=== PATIENT | female | born 1965 | race Caucasian/White ===

== ENCOUNTER → 2020-03-27 18:23 | Outpatient (CLI) | payer BC, SELFPAY | PROVIDERS: PCP Nurse Practitioner Primary Care; Referring Provider Nurse Practitioner Primary Care; Visit Provider Nurse Practitioner Primary Care | DX: Z11.59 Encounter for screening for other viral diseases (principal) | CPT/HCPCS: 87635; 94799; U0003 ==

== ENCOUNTER 2020-06-08 08:49 | Emergency (ER) | payer BC, SELFPAY ==
[2020-06-08 08:50] VITALS: BP 178/73; PULSE 79; RESP 19; TEMP 36.4; O2SAT 97; BMI 36.8
--- NOTE | 2020-06-08 08:57 | CT_ITS ---
STUDY: CT SOFT TISSUE NECK WITHOUT CONTRAST REASON FOR EXAM: Female, 54 years old. LEFT PERIAURICULAR SWELLING after eating a cracker and got a cramp RADIATION DOSAGE (If Supplied By Facility): CTDIvol = ( 18.75 ) mGy, DLP = ( 515.39 ) mGycm TECHNIQUE: The patient was scanned in a multi-detector CT scanner. High resolution transaxial imaging was performed without the administration of intravenous contrast material. Sagittal and coronal images were reconstructed. Individualized dose optimization techniques were used for this CT. COMPARISON: None. FINDINGS: Normal bilateral parotid glands. Normal bilateral filtering machine tender spaces. Normal bilateral parapharyngeal spaces. Normal bilateral carotid spaces. Atherosclerotic plaque formation of the aortic arch. Normal bilateral sublingual and submandibular glands and spaces. Normal visualized nasopharynx. Normal retropharyngeal space. Normal perivertebral space. Normal visualized bilateral faucial tonsils. The visualized tongue, tongue base and oropharynx are normal. There are minimally enlarged lymph nodes of the neck, with preservation of normal yovany architecture, consistent with a reactive lymph hyperplasia. There is no demonstrated solid or cystic mass lesion. Normal epiglottis, bilateral vallecula and hypopharynx. The pre-epiglottic and paraglottic adipose spaces are normal. Normal visualized bilateral piriform sinuses, aryepiglottic folds, vocal cords, and arytenoid-cricoid articulations. Normal subglottic trachea. There is a 1.4 cm x 1 cm slightly hypodense nodule in the medial aspect of the right lobe of the thyroid gland medially adjacent to the isthmus. There is also evidence of a 8.8 mm hypodense nodule in the posterior inferior pole of the left lobe of the thyroid gland. Normal visualized pulmonary apices. Small mediastinal lymph nodes. Normal visualized paranasal sinuses. Normal visualized cervical spine. CT/Soft Tissue Neck without Contr IMPRESSION: Normal unenhanced CT examination of the soft tissues of the neck. Small bilateral thyroid nodules. Electronically Signed: John Rivera, at 10:24 EDT , Service support ,
--- NOTE | 2020-06-08 08:58 | ED.VIS.GEN ---
History of Present Illness Chief Complaint: Edema Informant: Patient Onset: Today Current Severity: Mild Maximum Severity: Mild Narrative: Patient presents with rather abrupt onset of left facial swelling. She states she was eating a cracker this morning. She felt a cramping or spasm in the left side of her face and noted swelling just in front of her left ear and down into her neck. She has eaten this particular food in the past without any difficulty. She denies any other new products or medications. She does report having a problem with her salivary gland in 2005 with similar swelling but was not having pain at that time. She is complaining of pain today. She denies difficulty swallowing or shortness of breath. Past Medical History - Allergies and Home Meds Allergies/Adverse Reactions: Allergies HOT FLASHES PILL Allergy (Uncoded 06/08/20 08:55) Vomiting Primary Care Physician: Josue Da Silva NURSE RECRUITER, NURSE RECRUITER-C [Primary Care Provider] - Prior records reviewed: Yes Surgical History: appendectomy Smoking Status: Current every day smoker Review of Systems General: Denies: Chills, Fever Eyes: Denies: Visual changes - bilaterally ENT: Reports: - - Left periauricular pain Cardiovascular: Denies: Chest pain Respiratory: Denies: Dyspnea, Cough Gastrointestinal: Denies: Abdominal pain Musculoskeletal: Denies: Extremity Pain Skin: Denies: Rash Neurological: Denies: Headache Hematologic: Denies: Easy bruising, Easy bleeding Allergy: Denies: Uticaria Physical Exam Vital Signs/Narrative: Vital Signs Temp Pulse Resp BP Pulse Ox 06/08/20 08:50 97.5 F L 79 19 H 178/73 H 97 Inital Vital Signs reviewed: Yes General: Well nourished, Well developed Head: Normocephalic ENT: Moist mucous membranes, - - Focal swelling the left preauricular area that tracks down into the upper lateral neck. No overlying erythema. Area is tender to palpation. No crepitus. Intraoral examination unremarkable. Cardiovascular: Regular rate, Regular rhythm Respiratory: No distress, CTA bilaterally Abdomen: Soft, Nontender Extremities: Nontender Skin: Normal color Neurological: Alert, Oriented x3 Psychological: Normal affect Diagnostic/Tx/Re-eval Impressions Soft Tissue Neck CT 06/08/20 08:57 IMPRESSION: Normal unenhanced CT examination of the soft tissues of the neck. Small bilateral thyroid nodules. Electronically Signed: John Rivera, at 10:24 EDT , Service support , 06/08/20 08:57 CT Neck [Soft Tissue Neck without Contr] [CT] Stat Laboratory Results 06/08/20 06/08/20 08:54 08:54 WBC 8.4 RBC 5.38 Hgb 15.1 H Hct 46.9 MCV 87.2 MCH 28.1 MCHC 32.2 RDW Std Deviation 44.5 H RDW Coeff of Crystal 13.8 Plt Count 257 MPV 8.8 Immature Gran % (Auto) 0.200 Neut % (Auto) 61.7 Lymph % (Auto) 29.4 [place] % (Auto) 5.9 Eos % (Auto) 1.8 Baso % (Auto) 1.0 Absolute Neuts (auto) 5.2 Absolute Lymphs (auto) 2.46 Nucleated RBC % 0 Sodium 141 Potassium 3.9 Chloride 107 Carbon Dioxide 28.0 Anion Gap 6 BUN 14 Creatinine 0.74 Estim Creat Clear Calc 74.18 Est GFR (MDRD) Af Amer 105 Est GFR (MDRD) Non-Af 87 BUN/Creatinine Ratio 19.0 Glucose 102 Calcium 8.6 - Medical Decision Making Patient observed in the ER with no further swelling. Blood work is unremarkable. CT scan read as normal. When I reviewed the images through the left parotid gland I can see calcification that likely represents a stone in the duct. Patient was instructed on using lemon candies and warm compresses. She will be covered with Augmentin. She will be referred to ENT for follow-up as needed. ED Disposition - Plan for ED Patient: Disposition: Home or Assisted Living Diagnosis: Parotid duct obstruction Instructions: ED PAROTID DUCT OBSTRUCTION Prescriptions: Amox/Clavulanate Tablet [Augmentin Tablet] 875 mg PO Q12H #20 tab Transmission Status: Pending to [id number] Referrals: Adrian Hensley MD [STAFF PHYSICIAN] - 3-5 Days if not improving
[2020-06-08 09:03] LABS: Absolute Lymphocyte Count 2.46 X10^3/uL (0.83-4.51); Absolute Neutrophil Count 5.2 X10^3/uL (2.0-7.7); Basophil# 0.08 X10^3/uL; Eosinophil# 0.15 X10^3/uL; Eosinophils% 1.8 % (0-5); Hematocrit 46.9 % (37-47); Hemoglobin 15.1 g/dL (12.0-15.0); Lymphocyte # 2.46 X10^3/ul (4.0); Lymphocyte % 29.4 % (19-41); Mean Corp Hgb Conc 32.2 g/dL (32-36); Mean Corpuscular Hgb 28.1 pg (27.0-32.0); Mean Corpuscular Volume 87.2 fL (81-99); Mean Platelet Vol. 8.8 fl (6.2-12.0); Monocyte# 0.49 X10^3/uL; Monocyte% 5.9 % (0-10); NRBC Flagged by Analyzer 0 % (0-5); Neutrophil # 5.17 X10^3/uL (2.7-7.7); Neutrophil % 61.7 % (47-70); Platelet Count 257 K/mm3 (150-450); RBC Distribution Width CV 13.8 % (11.6-14.6); RBC Distribution Width SD 44.5 fl (35.1-43.9); Red Blood Count 5.38 M/mm3 (4.2-5.4); White Blood Count 8.4 K/mm3 (4.4-11.0)
[2020-06-08 09:14] LABS: Anion Gap 6 (5-15); BUN 14 mg/dL (7-18); Calcium,Total 8.6 mg/dL (8.5-10.1); Chloride 107 mmol/L (98-107); Creatinine, Serum 0.74 mg/dL (0.55-1.02); EST Glomerular Filtration Rate 87 mL/min (>60); Est Glom Filt Rate - Afr Amer 105 mL/min (>60); Estimated Creatinine Clearance 74.18 ml/min; Glucose 102 mg/dL (74-106); Potassium 3.9 mmol/L (3.5-5.1); Sodium Level 141 mmol/L (136-145)
[2020-06-08 10:52] VITALS: BP 144/84; PULSE 73; RESP 15; O2SAT 96
== END 2020-06-08 10:52 | disposition home or self-care (01) ==
PROVIDERS: Emergency Provider Emergency Medicine; PCP Nurse Practitioner Primary Care
DX: K11.8 Other diseases of salivary glands (principal); F17.200 Nicotine dependence, unspecified, uncomplicated
CPT/HCPCS: 70490; 80048; 85025; 99283; A4216

== ENCOUNTER 2020-07-26 11:11 | Emergency (ER) | payer BC, SELFPAY ==
[2020-07-26 11:12] VITALS: BP 189/83; PULSE 86; RESP 16; TEMP 35.9; O2SAT 99; BMI 24.2
--- NOTE | 2020-07-26 11:32 | ED.VIS.GEN ---
History of Present Illness Chief Complaint: Flank Pain Detail of Chief Complaint: Lower quadrant abdominal pain Informant: Patient Onset: Weeks - Patient reports pain that started 3 weeks ago and was intermittent. Pain has been continuous past 48 hours. Timing: Continuous, Intermittent Quality: Pain Location: Left lower quadrant Current Severity: Mild Maximum Severity: Severe Worsened by: Movement Relieved by: Nothing Associated Symptoms: Nausea Narrative: Patient is a 54-year-old woman who presents with left lower quadrant pain for the past 48 hours. She denies history of diverticulosis or diverticulitis. She denies history of constipation. She denies blood in her stool. She denies mucus in her stool. She denies dysuria, frequency, urgency or hematuria. She denies history of renal ureterolithiasis. She denies history of trauma. She denies headache, ocular, visual auditory symptoms. She denies cardiac respiratory symptoms. She has not noted a rash or any skin lesions. Prior similar symptoms: No Recent Illness/Hospitalization: No - Past Medical History (1) No significant past medical history Status: Acute Past Medical History - Allergies and Home Meds Allergies/Adverse Reactions: Allergies HOT FLASHES PILL Allergy (Uncoded 07/26/20 11:13) Vomiting Primary Care Physician: Josue Da Silva AIRBRUSH ARTIST PHOTOGRAPHY, AIRBRUSH ARTIST PHOTOGRAPHY-C [Primary Care Provider] - Surgical History: appendectomy Lives: Spouse/ Significant Other Smoking Status: Current every day smoker Alcohol: None Drugs: None Review of Systems General: Denies: Chills, Fever, Malaise, Subjective, Sweats Eyes: Denies: Visual changes - bilaterally, Blurred Vision - bilaterally ENT: Denies: Rhinorrhea, Sore throat Cardiovascular: Denies: Chest pain, Palpitations Respiratory: Denies: Dyspnea, Cough, Dyspnea on exertion Gastrointestinal: Reports: Abdominal pain, Nausea. Denies: Vomiting, Diarrhea, Constipation Genitourinary: Denies: Dysuria, Hematuria, Frequency Musculoskeletal: Denies: Back pain, Swelling, Extremity Pain Skin: Denies: Rash, Wounds Neurological: Denies: Headache, Parasthesia Endocrine: Denies: Polyuria, Polydipsia Hematologic: Denies: Easy bruising Physical Exam Vital Signs/Narrative: Vital Signs Temp Pulse Resp BP Pulse Ox 07/26/20 11:12 96.6 F L 86 16 189/83 H 99 Inital Vital Signs reviewed: Yes General: Well nourished, Well developed, Obese, No Acute Distress Head: Normocephalic, Atraumatic Eyes: Perrl, EOMI ENT: Moist mucous membranes, No rhinorrhea Neck: Supple, Nontender Cardiovascular: Regular rate, Regular rhythm, No murmurs Respiratory: No distress, CTA bilaterally, Chest nontender Abdomen: Soft, Nondistended, No masses, Tender, Guarding, Rebound tenderness - Localized peritoneal findings left lower quadrant, Hypoactive bowel sounds. Negative for: Nontender, Normal bowel sounds, Hepatomegaly, Splenomegaly, Pulsatile mass, Ko's sign Rectal: Deferred Back: Nontender, Normal Inspection. Negative for: CVA tenderness Extremities: Nontender, No edema Skin: Normal color, No rash, No Trauma. Negative for: Cyanosis, Diaphoresis, Jaundice Neurological: Alert, Oriented x3, Cranial nerves II-XII grossly intact, Normal Strength, Normal Sensation Psychological: Normal affect, Normal Mood Diagnostic/Tx/Re-eval Impressions Abdomen/Pelvis CT 07/26/20 12:11 IMPRESSION: Findings in keeping with a noncomplicated sigmoid diverticulitis. Enlarged fibroid uterus. 1.5 cm follicle in the right ovary. Left renal cyst. Electronically Signed: John Rivera, at 12:30 EST , Service support , 07/26/20 12:11 Abdomen/Pelvis W IV Cont ONLY [CT] Stat Laboratory Results 07/26/20 07/26/20 07/26/20 11:35 11:35 12:50 WBC 8.1 RBC 5.49 H Hgb 15.1 H Hct 47.3 H MCV 86.2 MCH 27.5 MCHC 31.9 L RDW Std Deviation 44.7 H RDW Coeff of Crystal 13.9 Plt Count 247 MPV 8.5 Immature Gran % (Auto) 0.200 Neut % (Auto) 66.2 Lymph % (Auto) 25.3 [place] % (Auto) 5.1 Eos % (Auto) 2.2 Baso % (Auto) 1.0 Absolute Neuts (auto) 5.4 Absolute Lymphs (auto) 2.05 Nucleated RBC % 0 Sodium 138 Potassium 3.9 Chloride 107 Carbon Dioxide 27.0 Anion Gap 4 L BUN 12 Creatinine 0.69 Estim Creat Clear Calc 86.24 Est GFR (MDRD) Af Amer 113 Est GFR (MDRD) Non-Af 93 BUN/Creatinine Ratio 17.3 Glucose 93 Calcium 8.8 Urine Color Yellow Urine Clarity Sl. Cloudy Urine pH 7.0 Ur Specific [place] 1.010 Urine Protein Negative Urine Glucose (UA) Normal Urine Ketones Negative Urine Occult Blood 10 H Urine Nitrite Negative Urine Bilirubin Negative Urine Urobilinogen Normal Ur Leukocyte Esterase Negative Urine RBC 0 SEEN Urine WBC 0 SEEN Ur Squamous Epith Cells 0-5 SEEN Urine Bacteria RARE Urine Mucus 0 SEEN - Medical Decision Making Diagnosis includes malignancy, diverticulitis, ureterolithiasis. Patient was ordered IV morphine and Zofran for her pain and nausea. Blood work was obtained and CT of the abdomen pelvis with IV contrast was ordered. Patient has evidence of noncomplicated diverticulitis. Since her white count is normal she is afebrile will treat with dose of Zosyn and discharged with Augmentin. ED Disposition - Plan for ED Patient: Disposition: Home or Assisted Living Diagnosis: Diverticulitis large intestine Instructions: ED Diverticulitis Prescriptions: Amoxicillin/Potassium Clav [Augmentin 875-125 Tablet] 1 ea PO BID #14 tab Transmission Status: Pending to [facility]/pharmacy #[id number] Referrals: Josue Da Silva NP, AIRBRUSH ARTIST PHOTOGRAPHY-C [Primary Care Provider] - 3-5 Days
[2020-07-26] MEDS: Morphine 4 MG/ML Syringe IV (11:45)
[2020-07-26] MEDS: Ondansetron 4 MG/2 ML Vial IV (11:45)
[2020-07-26 11:50] LABS: Absolute Lymphocyte Count 2.05 X10^3/uL (0.83-4.51); Absolute Neutrophil Count 5.4 X10^3/uL (2.0-7.7); Basophil# 0.08 X10^3/uL; Eosinophil# 0.18 X10^3/uL; Eosinophils% 2.2 % (0-5); Hematocrit 47.3 % (37-47); Hemoglobin 15.1 g/dL (12.0-15.0); Lymphocyte # 2.05 X10^3/ul (4.0); Lymphocyte % 25.3 % (19-41); Mean Corp Hgb Conc 31.9 g/dL (32-36); Mean Corpuscular Hgb 27.5 pg (27.0-32.0); Mean Corpuscular Volume 86.2 fL (81-99); Mean Platelet Vol. 8.5 fl (6.2-12.0); Monocyte# 0.41 X10^3/uL; Monocyte% 5.1 % (0-10); NRBC Flagged by Analyzer 0 % (0-5); Neutrophil # 5.35 X10^3/uL (2.7-7.7); Neutrophil % 66.2 % (47-70); Platelet Count 247 K/mm3 (150-450); RBC Distribution Width CV 13.9 % (11.6-14.6); RBC Distribution Width SD 44.7 fl (35.1-43.9); Red Blood Count 5.49 M/mm3 (4.2-5.4); White Blood Count 8.1 K/mm3 (4.4-11.0)
[2020-07-26 12:01] LABS: Anion Gap 4 (5-15); BUN 12 mg/dL (7-18); BUN/Creat Ratio 17.3 RATIO (10-20); Calcium,Total 8.8 mg/dL (8.5-10.1); Chloride 107 mmol/L (98-107); Creatinine, Serum 0.69 mg/dL (0.55-1.02); EST Glomerular Filtration Rate 93 mL/min (>60); Est Glom Filt Rate - Afr Amer 113 mL/min (>60); Estimated Creatinine Clearance 86.24 ml/min; Glucose 93 mg/dL (74-106); Potassium 3.9 mmol/L (3.5-5.1); Sodium Level 138 mmol/L (136-145)
--- NOTE | 2020-07-26 12:11 | CT_ITS ---
STUDY: CT ABDOMEN AND PELVIS WITH CONTRAST REASON FOR EXAM: Female, 54 years old. LLQ PAIN WITH REBOUND TENDERNESS, LEFT GROIN PAIN X3 WKS RADIATION DOSAGE (If Supplied By Facility): CTDIvol = ( 15.66 ) mGy, DLP = ( 1130.64 ) mGycm TECHNIQUE: Transaxial images were obtained from the dome of the diaphragm to the symphysis pubis without oral contrast. IV 100mL Isovue-300 was administered. Sagittal and coronal images were reconstructed. Individualized dose optimization techniques were used for this CT. COMPARISON: None. FINDINGS: Minimal degree of parenchymal markings at the lung bases as well as in the anterior aspect of the left lower lobe suggestive of atelectasis. The visualized portions of the heart are within normal limits. Normal liver. Normal gallbladder and extrahepatic biliary system. Normal spleen. Normal pancreas. Normal bilateral adrenal glands. Normal right kidney. There is a 5.5 cm x 5.3 cm cyst in the mid and lower pole of the left kidney. There is a small hiatal hernia. Normal small intestine. There is diverticulosis, with thickening of the colon wall, and pericolonic inflammation changes consistent with acute diverticulitis. The appendix is visualized and appears normal. There is scattered atherosclerotic calcification of the abdominal aorta, without a demonstrated aneurysm. Normal inferior vena cava. There is borderline retroperitoneal lymphadenopathy with enlarged nodes no greater than 10mm in the short axis diameter. Normal urinary bladder. Calcified fibroid uterus. 1.5 cm follicle in the right ovary. Normal abdominal wall. Normal osseous structures. CT/Abdomen/Pelvis W IV Cont ONLY IMPRESSION: Findings in keeping with a noncomplicated sigmoid diverticulitis. Enlarged fibroid uterus. 1.5 cm follicle in the right ovary. Left renal cyst. Electronically Signed: John Rivera, at 12:30 EST , Service support ,
[2020-07-26 12:58] LABS: Mucous, Urine 0 SEEN /hpf (<or=2+); Red Blood Cells-Urine 0 SEEN /hpf (0-5); White Blood Cells 0 SEEN /hpf (0-5)
[2020-07-26 13:13] LABS: Color, Urine Yellow (Yellow); Glucose, Dipstick Normal (Normal); Ketone-Dipstick Negative (Negative); Leukocyte Esterase-Dipstick Negative /ul (Negative); Nitrite-Dipstick Negative (Negative); Occult Blood-Urine 10 /ul (Negative); Protein-Dipstick Negative (Negative); Urine Bilirubin Dipstick Negative (Negative); Urine Clarity Sl. Cloudy (Clear); Urine Urobilinogen Normal (Normal)
[2020-07-26 13:21] LABS: Bacteria RARE /hpf (None Seen); Squamous Epithelial Cells - UA 0-5 SEEN /hpf (5-10)
[2020-07-26 13:30] VITALS: BP 193/93; PULSE 75; TEMP -8.8; TEMP 16; O2SAT 98
--- NOTE | 2020-07-26 13:31 | ED.RN ---
IV DC'ED, CATHETER INTACT, SMALL GAUZE DRESSING PLACED. DISCHARGE INSTRUCTIONS GIVEN TO AND REVIEWED WITH PATIENT, PATIENT DENIES QUESTIONS OR CONCERNS AND VOICES UNDERSTANDING OF DISCHARGE INSTRUCTIONS. PT AMBULATES OUT OF ROOM WITHOUT DIFFICULTY.
== END 2020-07-26 13:32 | disposition home or self-care (01) ==
PROVIDERS: Emergency Provider Emergency Medicine; PCP Nurse Practitioner Primary Care
DX: K57.32 Diverticulitis of large intestine without perforation or abscess without bleeding (principal); F17.200 Nicotine dependence, unspecified, uncomplicated; E66.9 Obesity, unspecified
CPT/HCPCS: 74177; 80048; 81001; 85025; 96374; 96375; 99283; J7050; Q9967; A4216; J2405

== ENCOUNTER 2020-08-07 21:24 | Observation (INO) | payer BC, SELFPAY ==
[2020-08-07] VITALS (7 sets, daily range): BP systolic 145–200; BP diastolic 78–97; PULSE 80–113; RESP 15–18; TEMP 36.6–38.2; O2SAT 95–100; BMI 37.1
[2020-08-07 22:24] LABS: Bacteria 0 SEEN /hpf (None Seen); Mucous, Urine 0 SEEN /hpf (<or=2+)
[2020-08-07 22:50] LABS: Color, Urine Yellow (Yellow); Glucose, Dipstick Normal (Normal); Ketone-Dipstick Negative (Negative); Leukocyte Esterase-Dipstick 500 /ul (Negative); Nitrite-Dipstick Positive (Negative); Occult Blood-Urine 250 /ul (Negative); Protein-Dipstick 100 mg/dl (Negative); Urine Bilirubin Dipstick Negative (Negative); Urine Clarity Sl. Cloudy (Clear); Urine Urobilinogen Normal (Normal)
--- NOTE | 2020-08-07 22:52 | CT_ITS ---
STUDY: CT ABDOMEN AND PELVIS WITH CONTRAST REASON FOR EXAM: Female, 54 years old. LLQ PAIN X 3 WEEKS,FINISHED ANTIBIOTIC FOR DIVERTICULITIS 08-02-20,HEMATURIA X 1 DAY -- PRIOR APPENDECTOMY RADIATION DOSAGE (If Supplied By Facility): CTDIvol = ( 19.55 ) mGy, DLP = ( 1100.31 ) mGycm TECHNIQUE: Transaxial images were obtained from the dome of the diaphragm to the symphysis pubis without oral contrast. IV 100mL Isovue-300 was administered. Sagittal and coronal images were reconstructed. Individualized dose optimization techniques were used for this CT. COMPARISON: CT of abdomen and pelvis 07/26/2020 FINDINGS: The visualized lung bases are unremarkable. The visualized portions of the heart are within normal limits. Normal liver. Normal gallbladder and extrahepatic biliary system. Normal spleen. Normal pancreas. Normal bilateral adrenal glands. Normal right kidney. 5.5 cm simple left renal cortical cyst. Normal visualized stomach. Normal small intestine. There is diverticulosis, with thickening of the colon wall, and pericolonic inflammation changes consistent with acute diverticulitis. There is non-visualization of the appendix. No free air or free fluid. No abscess. Normal abdominal aorta. Normal inferior vena cava. Normal retroperitoneum. Normal urinary bladder. Calcified uterine fibroid. Normal abdominal wall. Mild scoliosis. CT/Abdomen/Pelvis W IV Cont ONLY IMPRESSION: Acute sigmoid diverticulitis without evidence of perforation or abscess Electronically Signed: Adrian Mckeon MD at 23:45 EST , Service support ,
[2020-08-07] MEDS: Ketorolac 15 MG/ML Vial IV (23:11)
[2020-08-07] MEDS: 0.9% Normal Saline 1,000 ML 1000 ML IV (23:11)
[2020-08-07 23:13] LABS: Red Blood Cells-Urine 10-25 SEEN /hpf (0-5); Squamous Epithelial Cells - UA 0-5 SEEN /hpf (5-10); White Blood Cells 50-100 SEEN /hpf (0-5)
[2020-08-07 23:18] LABS: Absolute Lymphocyte Count 1.77 X10^3/uL (0.83-4.51); Absolute Neutrophil Count 12.1 X10^3/uL (2.0-7.7); Basophil# 0.09 X10^3/uL; Basophil% 0.6 % (0-1); Eosinophil# 0.15 X10^3/uL; Hematocrit 46.5 % (37-47); Lymphocyte # 1.77 X10^3/ul (4.0); Lymphocyte % 11.8 % (19-41); Mean Corp Hgb Conc 32.3 g/dL (32-36); Mean Corpuscular Hgb 27.4 pg (27.0-32.0); Mean Platelet Vol. 8.6 fl (6.2-12.0); Monocyte# 0.87 X10^3/uL; Monocyte% 5.8 % (0-10); NRBC Flagged by Analyzer 0 % (0-5); Neutrophil # 12.09 X10^3/uL (2.7-7.7); Neutrophil % 80.5 % (47-70); Platelet Count 255 K/mm3 (150-450); RBC Distribution Width SD 43.9 fl (35.1-43.9); Red Blood Count 5.47 M/mm3 (4.2-5.4)
--- NOTE | 2020-08-07 23:23 | ED.VIS.GI ---
History of Present Illness Chief Complaint: Complaint Narrative: Patient presenting secondary to urinary symptoms as well as flank pain. Patient states that on 26 July she was diagnosed as having diverticulitis. This was associated with left lower quadrant abdominal pain. She was placed on a 7-day course of Augmentin, does report that she finished the course of that but reports that she never really completely resolved her left lower quadrant abdominal pain. Patient states however over the course of the last 2 days she has developed dysuria with hematuria. This was associated with a new onset of suprapubic pain. Patient had a urinalysis performed as an outpatient today, but has not yet been informed of the results. Patient states that tonight she started to develop some flank pain that was bilateral as well as a subjective fever as well as a elevated home temperature of 37.9 ?C. Patient denies any nausea or vomiting. She denies any blood or mucus in her stool, constipation or diarrhea. Review of systems otherwise negative. Past Medical History - Allergies and Home Meds Allergies/Adverse Reactions: Allergies HOT FLASHES PILL Allergy (Uncoded 08/07/20 21:27) Vomiting Primary Care Physician: Josue Da Silva CHIEF PSYCHOLOGIST, CHIEF PSYCHOLOGIST-C [Primary Care Provider] - Prior records reviewed: Yes Past Medical History: - - Diverticulitis Surgical History: appendectomy Lives: With Family Smoking Status: Current every day smoker Alcohol: None Drugs: None Review of Systems All systems negative except as indicated General: Reports: Fever Eyes: Denies: Visual changes - bilaterally, Diplopia ENT: Denies: Rhinorrhea, Sore throat Cardiovascular: Denies: Chest pain, Palpitations Respiratory: Denies: Dyspnea, Cough, Dyspnea on exertion Gastrointestinal: Reports: Abdominal pain Genitourinary: Reports: Dysuria, Hematuria Musculoskeletal: Denies: Back pain, Extremity Pain Skin: Denies: Rash, Wounds Neurological: Denies: Headache, Weakness, Numbness Physical Exam Vital Signs/Narrative: Vital Signs Temp Pulse Resp BP Pulse Ox 08/07/20 23:00 100.7 F H 89 18 156/78 H 97 08/07/20 22:55 100.7 F H 08/07/20 22:27 98 F 80 18 145/97 H 99 08/07/20 22:20 89 15 145/97 H 100 08/07/20 22:01 168/93 H 08/07/20 21:27 97.8 F 113 H 17 200/89 H 95 08/07/20 21:25 97.8 F 113 H 17 200/89 H 95 Inital Vital Signs reviewed: Yes General: Well nourished, Well developed, No Acute Distress Head: Normocephalic, Atraumatic Eyes: Perrl, EOMI ENT: Moist mucous membranes, No rhinorrhea Neck: Supple, Nontender Cardiovascular: Regular rhythm, No murmurs, Tachycardia Respiratory: No distress, CTA bilaterally, Chest nontender Abdomen: Soft, Nondistended, Normal bowel sounds, Tender - Minimal suprapubic and left lower quadrant tenderness, no guarding or rebound. No evidence of overlying vesicular rash. No palpable masses. Back: Nontender, Normal Inspection Extremities: Nontender, No edema Skin: Normal color, No rash Neurological: Alert, Oriented x3, Cranial nerves II-XII grossly intact, Normal Strength, Normal Sensation Psychological: Normal affect, Normal Mood Diagnostic/Tx/Re-eval Clinical Impression(s) from Imaging Studies Abdomen/Pelvis CT 08/07/20 22:52 IMPRESSION: Acute sigmoid diverticulitis without evidence of perforation or abscess Electronically Signed: Adrian Mckeno MD at 23:45 EST , Service support , Laboratory Data 08/07/20 08/07/20 08/07/20 22:05 23:05 23:05 WBC 15.0 H RBC 5.47 H Hgb 15.0 Hct 46.5 MCV 85.0 MCH 27.4 MCHC 32.3 RDW Std Deviation 43.9 RDW Coeff of [place] 14.0 Plt Count 255 MPV 8.6 Immature Gran % (Auto) 0.300 Neut % (Auto) 80.5 H Lymph % (Auto) 11.8 L [place] % (Auto) 5.8 Eos % (Auto) 1.0 Baso % (Auto) 0.6 Absolute Neuts (auto) 12.1 H Absolute Lymphs (auto) 1.77 Nucleated RBC % 0 Sodium 139 Potassium 4.3 Chloride 107 Carbon Dioxide 27.0 Anion Gap 5 BUN 15 Creatinine 0.76 Estim Creat Clear Calc 72.22 Est GFR (MDRD) Af Amer 102 Est GFR (MDRD) Non-Af 84 BUN/Creatinine Ratio 19.9 Glucose 117 H Calcium 9.1 Urine Color Yellow Urine Clarity Sl. Cloudy Urine pH 6.0 Ur Specific [place] 1.020 Urine Protein 100 H Urine Glucose (UA) Normal Urine Ketones Negative Urine Occult Blood 250 H Urine Nitrite Positive H Urine Bilirubin Negative Urine Urobilinogen Normal Ur Leukocyte Esterase 500 H Urine RBC 10-25 SEEN Urine WBC 50-100 SEEN Ur Squamous Epith Cells 0-5 SEEN Urine Bacteria 0 SEEN Urine Mucus 0 SEEN - Medical Decision Making Patient presented with a fever mild tachycardia and left lower quadrant pain and urinary signs and symptoms. Patient was given fluids and Toradol for treatment of symptoms and fever. Patient was noted to have a leukocytosis of 15, chemistry was within normal limits with normal anion gap no evidence of acidosis. Urinalysis shows a nitrite positive urinary tract infection, this was cultured. Due to the patient's recent diagnosis of diverticulitis with continued pain after treatment CT abdomen and pelvis was performed. This shows continued acute sigmoid diverticulitis without any evidence of perforation or abscess. This point patient has a new onset of a urinary tract infection, she has continued diverticulitis without clearing after course of antibiotics, and now actually meets sepsis criteria secondary to her fever leukocytosis and 2 sources. Cultures were obtained, lactic acid will be obtained. Patient will be given a dose of Zosyn. I believe the patient requires admission for IV antibiotics at this time. I discussed this with the hospitalist. ED Disposition - Plan for ED Patient: Disposition: [facility] Diagnosis: Diverticulitis, Urinary tract infection, Sepsis, Failure of outpatient treatment
[2020-08-07 23:28] LABS: Anion Gap 5 (5-15); BUN 15 mg/dL (7-18); BUN/Creat Ratio 19.9 RATIO (10-20); Calcium,Total 9.1 mg/dL (8.5-10.1); Chloride 107 mmol/L (98-107); Creatinine, Serum 0.76 mg/dL (0.55-1.02); EST Glomerular Filtration Rate 84 mL/min (>60); Est Glom Filt Rate - Afr Amer 102 mL/min (>60); Estimated Creatinine Clearance 72.22 ml/min; Glucose 117 mg/dL (74-106); Potassium 4.3 mmol/L (3.5-5.1); Sodium Level 139 mmol/L (136-145)
[2020-08-08] VITALS (11 sets, daily range): BP systolic 123–153; BP diastolic 58–87; PULSE 75–89; RESP 16–20; TEMP 36.7–37.5; O2SAT 95–100; BMI 37.3
--- NOTE | 2020-08-08 00:20 | PCM.HP.STD ---
Problem List (1) Acute cystitis Status: Acute (2) Acute sigmoid diverticulitis Status: Acute (3) Sepsis Status: Acute History of Present Illness Date of Admission: 08/08/20 Chief Complaint: Dysuria, pink urine, abdominal pain. The patient is a 54 year old F with no significant past medical history presented to the emergency room because of dysuria, pink urine and abdominal pain. Patient came to the emergency department on July 26, 2020 with abdominal pain, had CT scan abdomen and pelvis with IV contrast and she was found to have noncomplicated acute sigmoid diverticulitis and she was discharged on Augmentin for 7 days. Patient completed Augmentin for 7 days and she stated that the left lower quadrant abdominal pain did improve but did not go away. The pain is on the left lower quadrant pain, sharp pain, 8 out of 10 in severity, has been getting worse over the last 3 days, extends to the right lower quadrant and suprapubic region, associated with subjective low-grade fever of 37.9 Celsius and without aggravating or relieving factors. Also, today, she started having pink-colored urine with dysuria and then she passed couple of blood clots. In the emergency department, she has spikes of low-grade fever, tachycardic upon arrival, blood pressure was elevated and then improved, pulse ox was 95% on room air. Routine blood work was remarkable for significant leukocytosis with neutrophilia, otherwise unremarkable. Lactic acid is normal.. Urinalysis revealed cloudy urine, positive for nitrite and leukocyte esterase, there was 50-100 RBCs and no bacteria seen. CT scan abdomen and pelvis with IV contrast done again tonight and again showed acute sigmoid diverticulitis without evidence of perforation or abscess formation. Patient is being admitted for sepsis secondary to acute sigmoid diverticulitis with failure of outpatient treatment as well as acute cystitis. Past Medical History Allergies HOT FLASHES PILL Allergy (Uncoded 08/07/20 21:27) Vomiting Home Medications: Ambulatory Orders Medication Instructions Recorded NK 08/07/20 Surgical History: appendectomy Psychiatric History: No pertinent psych hx CONCRETE BATCHER History: No pertinent CONCRETE BATCHER history Lives: With Family Smoking Status: Current every day smoker Tobacco Use: Cigarettes Alcohol: None Drugs: None - *Family History Maternal History Items: No pertinent history Paternal History Items: No pertinent history Review of Systems Constitutional: Reports: Fever. Denies: Anorexia, Chills, Weakness, Fatigue Eyes: Denies: Blurred vision, Double vision, Drainage, Redness HEENT: Denies: Difficulty Hearing, Dysphasia, Ear Pain, Eye Pain, Nasal Congestion, Sore Throat Cardiovascular: Denies: Chest Pain, Claudication, Chest Tightness, Edema, Heaviness, Palpitations, Syncope Respiratory: Denies: Cough, Hemoptysis, Pleuritic Pain, Shortness of breath at rest, Sputum production, Wheezing Gastrointestinal: Reports: Abdominal Pain. Denies: Constipation, Diarrhea, Nausea, Vomiting Genitourinary: Reports: Dysuria, Hematuria. Denies: Frequency Musculoskeletal: Denies: Arm Pain, Back Pain, Foot Pain Skin: Denies: Dryness, Rash Neurological: Denies: Balance problems, Blurred vision, Double vision, Change in Speech, Slurred speech, Headaches, Numbness Psychiatric: Denies: Anxiety, Depression Endocrine: Denies: Change in Body Habitus, Polydipsia, Polyuria VTE Information - Inpt Only VTE Present on Admission: No VTE Mechan Device Prophylaxis: None VTE Pharm Prophylaxis ordered?: Yes Patient Problems: Active and Suspected Problems Acute cystitis (Acute) Acute sigmoid diverticulitis (Acute) Sepsis (Acute) - Physical Exam Vitals/I&O's: Vital Signs Temp Pulse Resp BP Pulse Ox 100.7 F H 89 18 156/78 H 97 08/07/20 23:00 08/07/20 23:00 08/07/20 23:00 08/07/20 23:00 08/07/20 23:00 Oxygen Delivery Method Room Air Weight: 216 lb 7.903 oz Body Mass Index (BMI) 37.1 General: Alert, Oriented x3, Cooperative, No apparent distress HEENT: Atraumatic, PERRLA, EOMI, Normocephalic Oral: Moist Mucosa, No Gingival or Mucosal Lesions/ Ulcerations Neck: Supple, No JVD, Negative Carotid Bruits, Trachea Midline, Thyroid Normal Size and Texture Lungs: Clear to auscultation, Normal air movement, No rhonchi, No wheeze, No rales Cardiovascular: Regular rate, Regular Rhythm, Normal S1, Normal S2, PMI Normal, Tachycardic Abdomen: Bowel Sounds Present, Soft, Non-Distended, No Hepato-splenomegaly, Obese, Tender - Left lower quadrant tenderness, no guarding or rigidity. Extremities: No clubbing, No cyanosis, No edema Skin: No rashes, No breakdown Lymphatic: No Cervical, Supraclavicular, or Inguinal Adenopathy Neurological: Cranial nerves II-XII grossly intact, Motor Exam 5/5 strength throughout Psych/Mental Status: Normal Affect, Appropriate, Alert and oriented to time, place, person, mood and affect Laboratory Results 08/07/20 22:05: Urine Color Yellow, Urine Clarity Sl. Cloudy, Urine pH 6.0, Ur Specific [place] 1.020, Urine Protein 100 H, Urine Glucose (UA) Normal, Urine Ketones Negative, Urine Occult Blood 250 H, Urine Nitrite Positive H, Urine Bilirubin Negative, Urine Urobilinogen Normal, Ur Leukocyte Esterase 500 H, Urine RBC 10-25 SEEN, Urine WBC 50-100 SEEN, Ur Squamous Epith Cells 0-5 SEEN, Urine Bacteria 0 SEEN, Urine Mucus 0 SEEN 08/07/20 23:05: WBC 15.0 H, RBC 5.47 H, Hgb 15.0, Hct 46.5, MCV 85.0, MCH 27.4, MCHC 32.3, RDW Std Deviation 43.9, RDW Coeff of [place] 14.0, Plt Count 255, MPV 8.6, Immature Gran % (Auto) 0.300, Neut % (Auto) 80.5 H, Lymph % (Auto) 11.8 L, [place] % (Auto) 5.8, Eos % (Auto) 1.0, Baso % (Auto) 0.6, Absolute Neuts (auto) 12.1 H, Absolute Lymphs (auto) 1.77, Nucleated RBC % 0 08/07/20 23:05: Sodium 139, Potassium 4.3, Chloride 107, Carbon Dioxide 27.0, Anion Gap 5, BUN 15, Creatinine 0.76, Estim Creat Clear Calc 72.22, Est GFR (MDRD) Af Amer 102, Est GFR (MDRD) Non-Af 84, BUN/Creatinine Ratio 19.9, Glucose 117 H, Calcium 9.1 08/08/20 00:05: Lactic Acid Pending Clinical Impression(s) from Imaging Studies Abdomen/Pelvis CT 08/07/20 22:52 IMPRESSION: Acute sigmoid diverticulitis without evidence of perforation or abscess Electronically Signed: Adrian Mckeon MD at 23:45 EST , Service support , Current Medications Piperacillin Sod/Tazobactam (Sod 3.375 gm/ Sodium Chloride) 50 mls @ 100 mls/hr IV X1 ONE Stop: 08/08/20 00:35 Assessment/Plan All Active Problems Acute cystitis (Acute) Acute sigmoid diverticulitis (Acute) Sepsis (Acute) This is a 54 years old female patient presented to the emergency room because of pink-colored urine, dysuria as well as worsening left lower quadrant abdominal pain with recent diagnosis of acute sigmoid diverticulitis, was on Augmentin for 7 days and she was found to have sepsis secondary to acute sigmoid diverticulitis with failure outpatient treatment and also found to have acute cystitis. #1 acute sigmoid diverticulitis/sepsis: With failure of outpatient treatment, patient was on Augmentin for 7 days. Her abdominal pain did not actually go well but did improve initially and then came back. CT scan abdomen pelvis reviewed as above. Lactic acid was normal. Plan: Admit to [facility] floor, telemetry, clear liquids, IV fluids, blood culture, urine culture, Tylenol as needed, morphine as needed, Zofran as needed, start IV Zosyn, check LFT and lipase, repeat CBC and BMP tomorrow morning. #2 acute cystitis: Urinalysis reviewed, cloudy urine, positive for nitrite and leukocyte esterase, there was 50-100 WBCs but surprisingly, no bacteria seen. Plan: IV fluids, blood culture, urine culture, IV Zosyn as above. #3 elevated blood pressure: Without history of hypertension. Could be due to sepsis and infection. Plan for IV hydralazine as needed, monitor. #4 DVT prophylaxis: Subcu Lovenox. This note was generated with Rollbar dictation software. It may contain incorrect words, spelling, and punctuation that were not noted in checking the note before signing. Inpatient E&M: 22469 Init Hosp L3
[2020-08-08 00:50] LABS: Lactic Acid 0.9 mmol/L (0.4-1.9)
[2020-08-08] MEDS: 0.9% Normal Saline 1,000 ML 100 ML IV (00:55)
[2020-08-08 06:30] LABS: Absolute Lymphocyte Count 2.12 X10^3/uL (0.83-4.51); Absolute Neutrophil Count 6.9 X10^3/uL (2.0-7.7); Basophil# 0.07 X10^3/uL; Basophil% 0.7 % (0-1); Eosinophil# 0.24 X10^3/uL; Eosinophils% 2.4 % (0-5); Hematocrit 42.5 % (37-47); Hemoglobin 13.7 g/dL (12.0-15.0); Lymphocyte # 2.12 X10^3/ul (4.0); Lymphocyte % 20.9 % (19-41); Mean Corp Hgb Conc 32.2 g/dL (32-36); Mean Corpuscular Hgb 27.7 pg (27.0-32.0); Mean Corpuscular Volume 85.9 fL (81-99); Mean Platelet Vol. 8.6 fl (6.2-12.0); Monocyte# 0.79 X10^3/uL; Monocyte% 7.8 % (0-10); NRBC Flagged by Analyzer 0 % (0-5); Neutrophil # 6.89 X10^3/uL (2.7-7.7); Neutrophil % 67.9 % (47-70); Platelet Count 229 K/mm3 (150-450); RBC Distribution Width SD 44.2 fl (35.1-43.9); Red Blood Count 4.95 M/mm3 (4.2-5.4); White Blood Count 10.1 K/mm3 (4.4-11.0)
[2020-08-08 06:56] LABS: AST(SGOT) 11 U/L (15-37); Alanine Aminotransfer ALT/SGPT 21 U/L (13-56); Albumin, Serum 2.9 g/dL (3.2-5.0); Alkaline Phosphatase 61 U/L (45-117); Anion Gap 4 (5-15); BUN 15 mg/dL (7-18); BUN/Creat Ratio 25.9 RATIO (10-20); Bilirubin, Direct 0.17 mg/dL (0.00-0.30); Calcium,Total 8.2 mg/dL (8.5-10.1); Chloride 109 mmol/L (98-107); Creatinine, Serum 0.58 mg/dL (0.55-1.02); EST Glomerular Filtration Rate 114 mL/min (>60); Est Glom Filt Rate - Afr Amer 138 mL/min (>60); Estimated Creatinine Clearance 94.64 ml/min; Globulin 3.5 g/dL (2.2-4.2); Glucose 103 mg/dL (74-106); Lipase 48 U/L (73-393); Potassium 4.1 mmol/L (3.5-5.1); Protein, Total 6.4 g/dL (6.4-8.2); Sodium Level 139 mmol/L (136-145)
[2020-08-08] MEDS: Enoxaparin 40 MG/0.4 ML Syringe SC (09:22)
--- NOTE | 2020-08-08 10:47 | PCM.DC ---
- Discharge Diagnoses Current Active Problems: Current Active and Chronic Problems Acute cystitis (Acute) Acute sigmoid diverticulitis (Acute) Sepsis (Acute) You will use the following diet at home:: No restrictions Your food should be the consistency of: Regular Your liquids should be the consistency of: Regular/Thin Discharge Activity: Return to Normal Activity Weight Bearing Status: Full weight bearing Additional Instructions: You may reduce the Metronidazole to twice a day if having severe nausea Allergies/Adverse Reactions: Allergies HOT FLASHES PILL Allergy (Uncoded 08/07/20 21:27) Vomiting Medications to take at Discharge Ciprofloxacin [Cipro] 500 mg PO BID #14 tab 08/08/20 metroNIDAZOLE [Flagyl] 500 mg PO TID #21 tab 08/08/20 The following prescriptions were given: Ciprofloxacin [Cipro] 500 mg PO BID #14 tab Transmission Status: Pending to [id number] metroNIDAZOLE [Flagyl] 500 mg PO TID #21 tab Transmission Status: Pending to [id number] Primary Care Physician: Josue Da Silva NP, MAINTENANCE DATA ANALYST-C [Primary Care Provider] - Please follow up with your Primary Care Physician in: as needed Test Results: Test results from this visit will be discussed in further detail at your follow-up appointment, if applicable.
--- NOTE | 2020-08-08 11:01 | CASEMGMT ---
RN CM BICYCLE SUBASSEMBLER CM to room to meet with patient for initial transition planning/care coordination assessment. RN DYLON introduced self and role at [facility]. Pt voices understanding and consents to assessment at this time. Pt resting in bed in no distress at this time. DaughterSantos, @ bedside. Pt is A/O at this time and answers all questions appropriately. Care providers, pharmacy, and demographics verified/updated at this time. PCP: REID Da Silva Preferred Pharmacy: [facility] Insurance: [place] Prescription Benefit: Daughter thinks she does have Living Will/HPOA: Pt does not currently have LW/HCPOA. Pt made aware that she can contact as an out-pt and make appt in the future if she decides she would like to talk with someone about this or would like to utilize [facility] social work for advanced directive completion. Given Bench Shear Operator Rac card with information and contact number. Pt expresses understanding. LNOK: DaughterSantos Living Arrangements: Lives w/her daughterSantos, in one-story home w/1 step to enter. Independent Transportation: Pt, daughter DME: Has CPAP but does not use Pt states no need for further DME at this time. HHC/SNF: No history of either. No needs identified. Pt wishes to return home and states has no concerns with going home at time of discharge. CM to follow for any discharge planning/needs. Pt voices no concerns/needs at this time. Advised pt to ask for CM if any questions/concerns/needs arise. Voices understanding. PLAN: home Any BERMAN RN, CM
--- NOTE | 2020-08-08 14:16 | DS.PCM_ITS ---
Discharge Date and Diagnosis - Problem List Patient Problems: Active and Suspected Problems Acute cystitis (Acute) Acute sigmoid diverticulitis (Acute) Sepsis (Acute) Date of Admission: 08/08/20 Date of Discharge: 08/08/20 - Primary Discharge Diagnosis Acute Problems: Active Problems #1 acute sigmoid diverticulitis #2 acute cystitis from E. coli #3 sepsis secondary to acute cystitis from E. coli and acute sigmoid diverti culitis Hospital Course and Treatment Operations: None Procedures: None Summary of Care Provided: The patient is a 54 year old F in the emergency room at [facility] with a chief complaint of left lower quadrant abdominal pain, she had been treated for approximately 1 week on antibiotics for presumed diverticulitis. Work-up in the emergency room included a CT of the abdomen and pelvis which showed evidence of sigmoid diverticulitis without perforation or abscess, patient's urinalysis indicated that she had a urinary tract infection, patient's white blood cell count was elevated. Patient was admitted for sepsis and acute diverticulitis with acute cystitis, she was placed on IV Zosyn, her lab work was repeated on the morning of 08/08/2020 and it showed a normal white blood cell count and the patient was afebrile. At that time, patient had very little left lower abdominal discomfort, she was able to take oral medications without difficulty. Urine culture grew out E. coli. On 10/09/2019, patient was seen and examined: On examination she appeared in good health and spirits, she does not appear to be in any distress. Vital signs as documented. Skin warm and dry and without overt rashes. Neck without JVD, thyroid appears normal, trachea is midline, neck is supple. Lungs clear, normal air movement was noted. Heart exam notable for regular rhythm, normal sounds and absence of murmurs, rubs or gallops. Abdomen-slight lower quadrant abdominal tenderness was noted to palpation, no evidence of organomegaly, masses, or abdominal aortic enlargement, bowel sounds are present in all 4 quadrants. Extremities nonedematous, no cyanosis was noted, no clubbing was noted. Neuro: Cranial nerves II through XII are grossly intact, no focal motor deficits were noted, sensation to light touch and pinprick is intact, motor exam 5/5 throughout. Psych: Patient is alert and oriented x3, she does not appear anxious or depressed, she does not appear agitated. I had a discussion with the patient on 08/08/2020, she felt that she was feeling improved enough to go home, she was instructed to return to the hospital if she had further problems. Patient was discharged in stable condition on 08/08/2020. Patient Problems: Active and Suspected Problems Acute cystitis (Acute) Acute sigmoid diverticulitis (Acute) Sepsis (Acute) - Physical Exam Vitals/I&O's: Vital Signs Temp Pulse Resp BP Pulse Ox 98.5 F 80 18 144/87 H 98 08/08/20 12:42 08/08/20 12:42 08/08/20 12:42 08/08/20 12:42 08/08/20 12:42 Oxygen Delivery Method Room Air Weight: 98.6 kg Body Mass Index (BMI) 37.3 Intake and Output for Last 24 Hours 08/06/20 08/07/20 08/08/20 23:59 23:59 23:59 Intake Total 2391.67 / 2391.67 Output Total 1150 / 1150 Balance 1241.67 / 1241.67 Microbiology Past 72 Hours 08/07/20 22:05 Urine, Clean Catch Urine Culture - Preliminary Presumptive E. coli Laboratory Results 08/07/20 22:05: Urine Color Yellow, Urine Clarity Sl. Cloudy, Urine pH 6.0, Ur Specific [place] 1.020, Urine Protein 100 H, Urine Glucose (UA) Normal, Urine Ketones Negative, Urine Occult Blood 250 H, Urine Nitrite Positive H, Urine Bilirubin Negative, Urine Urobilinogen Normal, Ur Leukocyte Esterase 500 H, Urine RBC 10-25 SEEN, Urine WBC 50-100 SEEN, Ur Squamous Epith Cells 0-5 SEEN, Urine Bacteria 0 SEEN, Urine Mucus 0 SEEN 08/07/20 23:05: WBC 15.0 H, RBC 5.47 H, Hgb 15.0, Hct 46.5, MCV 85.0, MCH 27.4, MCHC 32.3, RDW Std Deviation 43.9, RDW Coeff of [place] 14.0, Plt Count 255, MPV 8.6, Immature Gran % (Auto) 0.300, Neut % (Auto) 80.5 H, Lymph % (Auto) 11.8 L, [place] % (Auto) 5.8, Eos % (Auto) 1.0, Baso % (Auto) 0.6, Absolute Neuts (auto) 12.1 H, Absolute Lymphs (auto) 1.77, Nucleated RBC % 0 08/07/20 23:05: Sodium 139, Potassium 4.3, Chloride 107, Carbon Dioxide 27.0, Anion Gap 5, BUN 15, Creatinine 0.76, Estim Creat Clear Calc 72.22, Est GFR (MDRD) Af Amer 102, Est GFR (MDRD) Non-Af 84, BUN/Creatinine Ratio 19.9, Glucose 117 H, Calcium 9.1 08/08/20 00:05: Lactic Acid 0.9 08/08/20 06:12: WBC 10.1, RBC 4.95, Hgb 13.7, Hct 42.5, MCV 85.9, MCH 27.7, MCHC 32.2, RDW Std Deviation 44.2 H, RDW Coeff of [place] 14.0, Plt Count 229, MPV 8.6, Immature Gran % (Auto) 0.300, Neut % (Auto) 67.9, Lymph % (Auto) 20.9, [place] % (Auto) 7.8, Eos % (Auto) 2.4, Baso % (Auto) 0.7, Absolute Neuts (auto) 6.9, Absolute Lymphs (auto) 2.12, Nucleated RBC % 0 08/08/20 06:12: Sodium 139, Potassium 4.1, Chloride 109 H, Carbon Dioxide 26.0, Anion Gap 4 L, BUN 15, Creatinine 0.58, Estim Creat Clear Calc 94.64, Est GFR (MDRD) Af Amer 138, Est GFR (MDRD) Non-Af 114, BUN/Creatinine Ratio 25.9 H, Glucose 103, Calcium 8.2 L, Total Bilirubin 0.60, Direct Bilirubin 0.17, AST 11 L, ALT 21, Alkaline Phosphatase 61, Total Protein 6.4, Albumin 2.9 L, Globulin 3.5, Lipase 48 L Discharge Activity: Return to Normal Activity Weight Bearing Status: Full weight bearing Home Medications: Medications to take at Discharge Ciprofloxacin [Cipro] 500 mg PO BID #14 tab 08/08/20 metroNIDAZOLE [Flagyl] 500 mg PO TID #21 tab 08/08/20 Following Prescriptions Were Given to Patient: Ciprofloxacin [Cipro] 500 mg PO BID #14 tab Transmission Status: Received by [facility]/pharmacy #[id number] metroNIDAZOLE [Flagyl] 500 mg PO TID #21 tab Transmission Status: [id number] Primary Care Physician: Josue Da Silva OFFICE SUPPORT CLERK, OFFICE SUPPORT CLERK-C [Primary Care Provider] - Please follow up with your Primary Care Physician in: as needed Disposition: Home Minutes spent on discharge:: 31 Patient Condition:: Stable Medical Necessity - Tobacco Use Smoking Status: Current every day smoker Tobacco Use: Cigarettes Meaningful Use Info Meaningful Use Diagnoses (Choose all that apply): None applicable OBSV E&M: 65863 Observ/hosp same date L3
== END 2020-08-08 12:40 | disposition home or self-care (01) ==
LOC: ED 08-08 00:09 → MS3 08-08 07:52
PROVIDERS: Emergency Medicine; Admitting Provider Hospitalist; Emergency Provider Emergency Medicine; PCP Nurse Practitioner Primary Care; Visit Provider Internal Medicine
DX: A41.51 Sepsis due to Escherichia coli [E. coli] (principal); N30.01 Acute cystitis with hematuria; K57.32 Diverticulitis of large intestine without perforation or abscess without bleeding; F17.210 Nicotine dependence, cigarettes, uncomplicated; R00.0 Tachycardia, unspecified; R03.0 Elevated blood-pressure reading, without diagnosis of hypertension
CPT/HCPCS: 36415; 74177; 80048; 80076; 81001; 83605; 83690; 85025; 87040; 87086; 87088; 87186; 96361; 96365; 96366; 96372; 96375; 99218; 99251; 99284; J7030; Q9967; A4216; G0378; G0463

== ENCOUNTER 2020-11-17 15:30 | Outpatient (RCR) | payer OTHER, BC, SELFPAY ==
[2020-10-19 15:16] VITALS: BMI 36.4
--- NOTE | 2020-12-14 10:31 | HP.PT.NRP ---
JERICA LÓPEZ was seen in my office for initial evaluation on 10/25/20. The following Plan of Care was established for this patient: Initial Frequency: 2x /Week Initial Duration: 4 Weeks Patient/Client Instruction: Educate patient on: Plan of Care For the Purpose of:: To improve muscle performance and motor function Therapeutic Exercise to Include: Strength training, Power training, Endurance training, Balance training, Coordination, Body mechanics, Postural training, Flexibilty training, Scapular Strength/Stabilization For the Purpose of:: To improve muscle performance and motor function This patient was last seen in our office . Pertinent comments regarding their Physical therapy will appear below: Patient has not attended PT in over 30 days, appropriate for d/c and return to MD for further evaluation as needed. At this point I will be discontinuing this patient from physical therapy. I would be happy to see this patient again in the future if found appropriate by the physician. Thank you! Alize Fatima DPT
== END 2020-11-17 19:00 | disposition home or self-care (01) ==
LOC: PT 15:30
PROVIDERS: PCP Nurse Practitioner Primary Care; Referring Provider Physician Assistant; Visit Provider Physician Assistant
DX: S16.1XXD Strain of muscle, fascia and tendon at neck level, subsequent encounter (principal); S29.019D Strain of muscle and tendon of unspecified wall of thorax, subsequent encounter
CPT/HCPCS: 97035; 97110; 97140; 97162; 97530

== ENCOUNTER 2024-09-20 14:16 | Emergency (ER) | payer SELFPAY ==
[2024-09-20 14:17] VITALS: BP 170/103; PULSE 125; RESP 18; TEMP 36.9; O2SAT 92; BMI 41.8
--- NOTE | 2024-09-20 16:37 | ED.VIS.BACK ---
HPI History of Present Illness Chief Complaint: Back Detail of Chief Complaint: Back pain Informant: patient Narrative Narrative: Patient presents to the emergency room with complaint of back pain that she has had for about 2 weeks. She denies any injury. She describes pain radiating down her right leg. She denies weakness to the extremity. She denies loss of bowel or bladder function although she does have some frequent urination. She denies fevers or chills or sweats. Pain worse with certain movements. She denies abdominal pain. PFSH PFSH Home Medications ?Medication ?Instructions ?Recorded ?Last Taken ?Type cyclobenzaprine 10 mg tablet 10 mg PO TID PRN Muscle Spasm #20 09/20/24 Unknown Rx TABLETS hydrocodone-acetaminophen 5-325mg 1 tab PO Q4H PRN PRN Pain 2 days 09/20/24 Unknown Rx 5mg-325mg #15 TABLETS methylprednisolone 4 mg tablets in 4 mg PO DAILY #21 tabs 09/20/24 Unknown Rx a dose pack (Medrol ([facility]arl)) naproxen 500 mg tablet 500 mg PO BID #14 tabs 09/20/24 Unknown Rx Allergy/AdvReac Type Severity Reaction Status Date / Time No Known Allergies Allergy Verified 09/20/24 14:19 Social History (Updated 11/22/20 @ 14:45 by Keron BASURTO, PA) Smoking Status: Current every day smoker alcohol intake: never ROS ROS ED Review of Systems ROS Unobtainable: other Constitutional Constitutional ED: Reports lethargy; Denies chills, fever(s), sweats or weight loss Eyes Eyes: Denies blurry vision, change in vision or diplopia ENT ENT ED: Denies rhinorrhea or sore throat Cardiovascular Cardiovascular: Denies chest pain, orthopnea or racing heartbeat Respiratory/Chest Respiratory/Chest: Denies cough, dyspnea, dyspnea on exertion, orthopnea or sputum Gastrointestinal Gastrointestinal: Denies abdominal pain, diarrhea, nausea or vomiting Genitourinary Genitourinary ED: Denies dysuria, hematuria or urinary frequency Musculoskeletal Musculoskeletal: Reports back pain and other Details: Pain down right leg ; Denies arthralgias, myalgias or neck pain Integumentary Denies abscess, Abrasions or rash Neurologic Neurologic: Denies headache(s) or weakness Psychiatric Psychiatric: Denies anxiety, depression or suicidal thoughts Endocrine Endocrinology: Denies polydipsia, polyphagia or polyuria Hematologic/Lymphatic Hematologic/Lymphatic: Denies easy bleeding, easy bruising or lymphadenopathy Allergic/Immunologic Allergic/Immunologic ED: Denies mouth swelling, tongue swelling or urticaria EXAM Physical Exam Const Vital Signs: 09/20/24 14:17 Temperature 98.5 F Temperature Source Oral Pulse Rate 125 H Respiratory Rate 18 Blood Pressure 170/103 H Blood Pressure Mean 125 Pulse Ox 92 Oxygen Delivery Method Room Air Positive well nourished and well developed General Appearance ED: well developed and NAD HEENT Reports TM's clear and moist mucous membranes normocephalic and atraumatic; Negative for trauma or tenderness Tympanic Membrane ED: Yes TM's clear Eyes PERRL and EOMs intact bilaterally General Eye ED: Negative for pale conjunctiva or scleral icterus Neck no lymphadenopathy, supple and no JVD General: Negative for tenderness Chest Wall inspection of chest normal and palpation of chest normal Chest: Negative for tenderness Resp normal respiratory effort and clear to auscultation bilaterally Effort and Inspection: Negative for respiratory distress or pain with movement Auscultation: Negative for rhonchi, wheezes or diminished lung sounds Cardio regular rate, regular rhythm, S1 normal heart sound, S2 normal heart sound and no murmurs Peripheral Pulses: pulses 2+ throughout GI normal to inspection, nondistended, normoactive bowel sounds, soft to palpation, non-tender, non-distended and no masses Back/Spine no thoracic nor lumbar tenderness Back/Spine Narrative: Palpation of her back reveals no tenderness over the thoracic or lumbar spine. Patient has positive straight leg raise on the right while seated at about 90 degrees. She has normal L5 extension bilaterally. She has normal deep tendon reflexes plus 2 out of 4 bilaterally at the patella and Achilles. She has normal L5 extension bilaterally. Normal sensation to light touch bilaterally. Extremity normal to inspection General Extremety ED: Negative for edema General Extremity: Negative for edema Neuro oriented x3, CN's II-XII intact bilaterally, no sensory deficits noted and gait normal Sensorium / Orientation: awake, alert, oriented to person, oriented to place and oriented to time Motor Exam: strength 5/5 throughout and strength abnormal Psych mental status grossly normal Skin no rashes or lesions noted and no wounds MDM MDM MDM Narrative Medical decision making narrative: Patient presents with 2 weeks of back pain with pain radiating down her right leg. Clinically suspect sciatica. No red flag signs or symptoms of cauda equina. She has had no trauma and I do not think x-rays are indicated. She has no abdominal pain. I did offer to obtain a urinalysis however she does not have insurance and would prefer to go to urgent care where she thinks it will be cheaper. I do not feel patient needs emergent imaging such as MRI. Will treat with Medrol Dosepak as well as hydrocodone and Flexeril. Will refer to back specialist for follow-up. Discharge Plan Triage Chief Complaint: Back ED Provider: Han Polanco Dx/Rx/DC Orders Clinical Impression: Sciatica Instructions: ED Sciatica Prescriptions: New cyclobenzaprine 10 mg tablet 10 mg PO TID PRN (Reason: Muscle Spasm) Qty: 20 0RF hydrocodone-acetaminophen 5-325 mg tablet 1 tab PO Q4H PRN PRN (Reason: Pain) 2 Days Qty: 15 0RF naproxen 500 mg tablet 500 mg PO BID Qty: 14 0RF methylprednisolone [Medrol (Earl)] 4 mg tablets,dose pack 4 mg PO DAILY Qty: 21 0RF Primary Care Provider: Josue Da Silva NP Referrals: Ariel Yousif MD [Med Staff - Active Staff] - 3-5 Days Josue Da Silva NP, [employer] [Primary Care Provider] - Print Language: Lao Disposition Disposition: Home, Self Care
[2024-09-20 16:55] VITALS: BP 118/90; PULSE 71; RESP 16; TEMP 36.8; O2SAT 100
== END 2024-09-20 16:56 | disposition home or self-care (01) ==
LOC: ED 16:50
PROVIDERS: Emergency Provider Emergency Medicine; Visit Provider Emergency Medicine
DX: M54.30 Sciatica, unspecified side (principal); F17.290 Nicotine dependence, other tobacco product, uncomplicated
CPT/HCPCS: 99282